=== PATIENT | male | born 1955 | race Native Hawaiian/Other Pacific Islander ===

== ENCOUNTER 2016-11-10 11:52 | Outpatient (CLI) | payer OTHER ==
[2016-11-10 12:25] LABS: POTASSIUM 3.8 mmol/L (3.6-5.2)
== END 2016-11-10 20:12 | disposition home or self-care (01) ==
LOC: LABW 11:52
PROVIDERS: Internal Medicine Cardiovascular Disease
DX: R06.00 Dyspnea, unspecified (principal); Z09 Encounter for follow-up examination after completed treatment for conditions other than malignant neoplasm
CPT/HCPCS: 36415; 80048

== ENCOUNTER 2017-03-02 11:23 | Outpatient (CLI) | payer OTHER | END 2017-03-02 19:21 | disposition home or self-care (01) | LOC: LABW 11:23 | PROVIDERS: Physician Assistant Medical | DX: R94.4 Abnormal results of kidney function studies (principal) | CPT/HCPCS: 36415; 80053 ==

== ENCOUNTER 2017-07-06 12:22 | Outpatient (CLI) | payer OTHER ==
[2017-07-06 12:54] LABS: PLATELET COUNT 177 K/uL (142-355)
[2017-07-06 13:21] LABS: POTASSIUM 4.5 mmol/L (3.6-5.2)
== END 2017-07-06 19:08 | disposition home or self-care (01) ==
LOC: LABW 12:22
PROVIDERS: Physician Assistant Medical
DX: I95.89 Other hypotension (principal); E11.9 Type 2 diabetes mellitus without complications; Z12.5 Encounter for screening for malignant neoplasm of prostate
CPT/HCPCS: 36415; 80053; 80061; 83036; 84153; 85027

== ENCOUNTER 2018-08-11 13:09 | Outpatient (CLI) | payer OTHER ==
[2018-08-11 13:46] LABS: POTASSIUM 3.7 mmol/L (3.6-5.2)
== END 2018-08-11 21:52 | disposition home or self-care (01) ==
LOC: LABW 13:09
PROVIDERS: Family Medicine
DX: N18.2 Chronic kidney disease, stage 2 (mild) (principal); E78.5 Hyperlipidemia, unspecified
CPT/HCPCS: 36415; 80053; 80061

== ENCOUNTER 2019-05-24 10:20 | Outpatient (CLI) | payer OTHER ==
[2019-05-24 10:53] LABS: PLATELET COUNT 226 K/uL (142-355)
[2019-05-24 11:04] LABS: POTASSIUM 4.4 mmol/L (3.6-5.2)
== END 2019-05-24 23:59 | disposition home or self-care (01) ==
LOC: LABW 10:20
PROVIDERS: Pain Medicine Pain Medicine
DX: Z79.899 Other long term (current) drug therapy (principal)
CPT/HCPCS: 36415; 80053; 85027

== ENCOUNTER 2023-04-15 09:16 | Outpatient (CLI) | payer OTHER ==
[2023-04-15 10:24] LABS: PLATELET COUNT 191 K/uL (142-355)
[2023-04-15 11:01] LABS: POTASSIUM 3.8 mmol/L (3.6-5.2)
== END 2023-04-15 19:03 | disposition home or self-care (01) ==
LOC: LABW 09:16
PROVIDERS: ATTEND Nurse Practitioner Family
DX: Z00.00 Encounter for general adult medical examination without abnormal findings (principal); G93.32 Myalgic encephalomyelitis/chronic fatigue syndrome; I10 Essential (primary) hypertension; E11.9 Type 2 diabetes mellitus without complications; Z79.899 Other long term (current) drug therapy; E66.9 Obesity, unspecified; M25.50 Pain in unspecified joint; R35.1 Nocturia; E78.49 Other hyperlipidemia
CPT/HCPCS: 36415; 80053; 80061; 81002; 82607; 82746; 83036; 84153; 84403; 84439; 84443; 84481; 85027